=== PATIENT | female | born 1990 | race Caucasian/White ===

== ENCOUNTER 2019-03-11 14:22 | Emergency (ER) | payer MEDICAID ==
[2019-03-11] MEDS: KETOROLAC 60 MG INJ IM (16:15)
[2019-03-11] MEDS: ONDANSETRON (ODT) 4 MG TAB ODT (17:06)
[2019-03-11 17:07] LABS: ADD UMIC YES; UR ASCORBIC ACID NEGATIVE (NEGATIVE); UR BACTERIA FEW /HPF (NONE SEEN); UR BILIRUBIN (Dip) NEGATIVE (NEGATIVE); UR BLOOD (Dip) 1+ mg/dL (NEGATIVE); UR CLARITY CLEAR (CLEAR); UR COLOR STRAW (YELLOW); UR GLUCOSE (Dip) NEGATIVE (NEGATIVE); UR KETONES (Dip) 1+ mg/dL (NEGATIVE); UR LEUKOCYTE ESTERASE (Dip) NEGATIVE Leu/ul (NEGATIVE); UR NITRITE (Dip) NEGATIVE (NEGATIVE); UR RBC 2 /HPF (0-5); UR SPECIFIC GRAVITY (Dip) 1.009 (1.003-1.030); UR TOTAL PROTEIN (Dip) NEGATIVE (NEGATIVE); UR UROBILINOGEN (Dip) NEGATIVE (NEGATIVE); UR WBC 1 /HPF (0-5)
[2019-03-11] MEDS: LIDOCAINE/MYLANTA 40 ML BTL PO (18:43)
[2019-03-11] MEDS: BELLADONNA/PHENOBARBITAL TAB PO (18:43)
[2019-03-11] MEDS: FAMOTIDINE 20 MG TAB PO (18:43)
== END 2019-03-11 18:48 | disposition home or self-care (01) ==
LOC: FTE 14:22
DX: K21.9 Gastro-esophageal reflux disease without esophagitis (principal)
CPT/HCPCS: 36415; 74019; 81001; 81025; 96372; 99284-25